=== PATIENT | female | born 1965 | race American Indian/Alaskan Native ===

== ENCOUNTER 2016-10-13 12:50 | Outpatient (CLI) | payer OTHER ==
--- NOTE | 2016-10-13 13:45 | Mammography Report ---
BILATERAL DIGITAL DIAGNOSTIC MAMMOGRAM CAD: 10/13/16 12:50:00 CLINICAL: Left breast pain. The patient did not describe a lump. COMPARISON:None. FINDINGS: Breasts are heterogeneously dense and the density is sufficient to limit the sensitivity of mammography. Extensive bilateral scattered benign calcifications.An oval circumscribed right retroareolar density on the CC view requires evaluation with ultrasound. However, ultrasound is not available. No architectural distortion. No left mass identified. IMPRESSION: A right asymmetry requires additional evaluation with ultrasound in the left breast pain requires additional evaluation with ultrasound. BI-RADS CATEGORY: 0--Needs Additional Imaging RECOMMENDATION: Return for bilateral global ultrasound. ACR BI-RADS MAMMOGRAPHIC CODES: 0 = Needs additional imaging evaluation; 1 = Negative; 2 = Benign; 3 = Probably benign; 4 = Suspicious; 5 = Malignant; 6 = Known biopsy-proven malignancy COMMENT: 1. Dense breast tissue, i.e., adenosis, fibrocystic changes, etc., may obscure an underlying neoplasm. 2. Approximately 10% of cancers are not detected with mammography. 3. A negative mammography report should not delay biopsy if a clinically suspicious mass is present. COMMENT: Patient follow-up letters are generated by our [employer] application.
== END 2016-10-13 12:51 | disposition home or self-care (01) ==
LOC: SPVWC 12:50
PROVIDERS: ATTEND Internal Medicine
DX: N63 Unspecified lump in breast (principal); N64.4 Mastodynia; R92.1 Mammographic calcification found on diagnostic imaging of breast; N64.89 Other specified disorders of breast
CPT/HCPCS: 77066; G0204

== ENCOUNTER 2016-10-27 10:14 | Outpatient (CLI) | payer OTHER ==
--- NOTE | 2016-10-27 11:48 | Ultrasound Report ---
BILATERAL BREAST ULTRASOUND: 10/27/16 10:14:00 CLINICAL: Recalled for a right asymmetry and for further evaluation of left breast pain. COMPARISON: 10/13/16 bilateral mammogram. FINDINGS: Ultrasound of the right breast(including all four quadrants and the retroareolar area) was performed and demonstrated an oval smooth solid mass at 3 o'clock 2 cm from the nipple measuring 6 x 4 x 6 mm. It is not correlate with the mammographic asymmetry in the midline posteriorly on the CC view. Ultrasound of the axilla demonstrated a lymph node with benign morphology measuring 1.1 x 0.8 x 1.6 cm. Ultrasound of the left breast (including all four quadrants and the retroareolar area) was performed and demonstrated benign cysts and no solid mass. A subareolar cyst at 1:30 o'clock measures 1.3 x 0.7 x 1.3 cm and a complex cyst at 9 o'clock 3 cm from the nipple measures 0.9 x 0.4 x 0.7 cm. IMPRESSION: Benign cysts of the left breast and no other explanation for left breast pain. A probably benign 6 mm right breast mass at 3 o'clock 2 cm from the nipple. No ultrasound finding to correlate with the right asymmetry on the recent mammogram. BI-RADS 3--Probably Benign RECOMMENDATION: Six month followup right mammogram and right breast ultrasound to reevaluate the mammographic asymmetry and the 6 mm mass at 3 o'clock right breast. Recommend routine screening of the left breast.
== END 2016-10-27 10:15 | disposition home or self-care (01) ==
LOC: SPVWC 10:14
PROVIDERS: ATTEND Internal Medicine
DX: N60.02 Solitary cyst of left breast (principal); N63 Unspecified lump in breast; N64.4 Mastodynia